=== PATIENT | female | born 1965 | race Caucasian/White ===

== ENCOUNTER 2023-04-10 04:15 | Emergency (ER) | payer OTHER ==
[~2023-04-10] VITALS: Ht 182.9 cm; Wt 82.0 kg
[2023-04-10 05:37] VITALS: TEMP 97.7
[2023-04-10 06:25] VITALS: PULSE 76; RESP 11; O2SAT 96
[2023-04-10] MEDS ORDERED: SODIUM CHLORIDE 0.9% 1,000 ML IV ONE (07:30)
[2023-04-10] MEDS ORDERED: SODIUM CHLORIDE 0.9% 500 ML IV ONE (07:30)
[2023-04-10 07:59] LABS: Basophils # (auto) 0.1 10 ^3/uL (0-0.2); Basophils % (auto) 1.1 % (0.0-2.0); Eosinophils # (auto) 0.2 10 ^3/uL (0-0.8); Eosinophils % (auto) 1.5 % (0.0-7.0); Hematocrit 43.1 % (36.0-46.0); Hemoglobin 14.3 g/dL (12.2-16.2); Lymphocytes # (auto) 2.3 10 ^3/uL (0.4-5.4); Mean Corpuscular Hemoglobin 29.9 pg (28.0-32.0); Mean Corpuscular Hgb Conc. 33.2 g/dL (32.0-36.0); Mean Corpuscular Volume 90.1 fL (80.0-100.0); Monocytes # (auto) 0.5 10 ^3/uL (0-1.3); Monocytes % (auto) 4.5 % (0.0-12.0); Neutrophils # (auto) 7.1 10 ^3/uL (1.6-8.6); Neutrophils % (auto) 69.9 % (37.0-80.0); Nucleated Red Blood Cells % 0.1 %; Red Blood Cells 4.79 10^6/uL (4.0-5.20); Red Cell Distribution Width 12.7 % (11.8-14.3); White Blood Cell 10.2 10^3/uL (4.4-10.8)
[2023-04-10 08:13] LABS: Albumin 4.4 g/dL (3.4-5.0); Calcium 9.5 mg/dL (8.5-10.1); Magnesium 2.9 mg/dL (1.6-2.6); Potassium 4.2 mmol/L (3.5-5.1)
[2023-04-10 08:17] LABS: BUN/Creatinine Ratio 11.1 (10.0-20.0); Bilirubin, Total 0.3 mg/dL (0.2-1.0); Total Protein 8.9 g/dL (6.4-8.2)
[2023-04-10 08:40] VITALS: PULSE 80; RESP 12; O2SAT 97
[2023-04-10 11:00] VITALS: RESP 12
[2023-04-10 12:00] VITALS: PULSE 70; O2SAT 97
[2023-04-10] MEDS ORDERED: LEVOTHYROXINE SODIUM 88 MCG TAB PO ONE (12:15)
[2023-04-10] MEDS ORDERED: LORazepam 0.5 MG TAB PO ONE (12:30)
[2023-04-10] MEDS ORDERED: QUEtiapine FUMARATE 25 MG TAB PO ONE (12:30)
[2023-04-10 13:00] VITALS: BP 148/91
[2023-04-10] MEDS ORDERED: QUET50TA PO (15:04)
[2023-04-10] MEDS ORDERED: LORA-655 PO (15:04)
[2023-04-10] MEDS ORDERED: LEVO75TA6 PO (15:04)
[2023-04-10] MEDS ORDERED: KETOROLAC TROMETH 30 MG/ML 1ML VIAL IV ONE (16:15)
[2023-04-10] MEDS ORDERED: METOCLOPRAMIDE HCL 5MG/ml INJ 2ml VIAL IV ONE (16:15)
[2023-04-10] MEDS ORDERED: SODIUM CHLORIDE 0.9% 500 ML IVB ONE (16:15)
[2023-04-13 05:07] LABS: RPR Non Reactive (Non Reactive)
== END 2023-04-10 15:54 | disposition home or self-care (01) ==
LOC: ER 04:15
DX: L20.9 Atopic dermatitis, unspecified (principal); M54.9 Dorsalgia, unspecified; G89.29 Other chronic pain; E03.9 Hypothyroidism, unspecified; F23 Brief psychotic disorder; E11.9 Type 2 diabetes mellitus without complications; F17.210 Nicotine dependence, cigarettes, uncomplicated; Z98.890 Other specified postprocedural states
CPT/HCPCS: 36415; 71046; 80053; 83735; 84443; 85025; 86592